=== PATIENT | male | born 2005 | race Caucasian/White ===

== ENCOUNTER 2025-07-21 20:31 | Emergency (ER) | payer BC, SELFPAY ==
[2025-07-21 20:40] VITALS: BP 131/71; PULSE 61; TEMP 36.8; O2SAT 98; BMI 23.7
--- NOTE | 2025-07-21 20:46 | XR_ITS ---
[facility] [place] [id number] Patient Name: RUDI WELCH MRN: [id number] date: 2005 Sex: M Assigned Patient Location: ED.MAIN Current Patient Location: ER Accession/Order Number: [id number] Exam Date: 07/21/2025 20:50 Report Date: 07/21/2025 21:40 At the request of: PHYLLIS MARC MD Procedure: XR knee LT 4V 4 views left knee CLINICAL HISTORY: pain and swelling COMPARISON: None FINDINGS: No evidence acute fracture or dislocation. Minimal medial compartment joint space narrowing. Soft tissues unremarkable. XR/XR knee LT 4V IMPRESSION: Negative acute osseous abnormalities. Impression dictated by: Onofre Simpson M.D. 07/21/2025 9:40 PM Dictation Location: [place] [address] Electronically authenticated by: [id number] Y Date: 07/21/2025 21:40
--- NOTE | 2025-07-21 20:50 | PC.NURSE ---
Swelling and redness to knee
--- NOTE | 2025-07-21 21:08 | PC.NURSE ---
patient complains of left knee pain and swelling onset today, this patient adds 1 day ago that was working on his knees a lot that day this left knee pain is at 7/10 sharp. this patient voices no other concerns, needs and show no signs of distress
--- NOTE | 2025-07-21 21:09 | ED_ITS ---
HPI HPI - Extremity Injury (Lower) General Chief Complaint: Extremity Injury, Lower Stated Complaint: Lower Pain Time Seen by Provider: 07/21/25 21:02 Source: patient Mode of arrival: walk-in History of Present Illness HPI Narrative: patient works on his knees. details cars etc. Noticed discomfort of the knee yesterday. Increased pain during the night and today. Feels somewhat better when wrapped with william bandage. Denies injury , fever or chills Related Data Allergies Allergy/AdvReac Type Severity Reaction Status Date / Time No Known Drug Allergies Allergy Verified 07/21/25 20:46 Opioid HPI Opioid Management Most Recent Pain and Opioid Data: 2 Last Pain Scale 4 Today, 20:40 Review of Systems 2 ROS0 Status of ROS 10 or more systems reviewed and unremark able except as noted in history and below PFSH PFSH Social History Little interest or pleasure in doing things: not at all Feeling down, depressed, or hopeless: not at all Exam Constitutional Vital Signs, click to edit/add: Last Vital Signs Temp 98.3 F 07/21/25 20:40 Pulse 61 07/21/25 20:40 Resp 16 07/21/25 20:40 BP 131/71 07/21/25 20:40 Pulse Ox 98 07/21/25 20:40 Common normals: no apparent distress, average body habitus, oriented x3, no limitations, healthy appearing, alert and well nourished [facility] Common normals: normocephalic and head/scalp atraumatic Eye Common normals: EOMs intact bilaterally and conjunctivae normal Respiratory Common normals: normal respiratory effort, no retractions, no use of accessory muscles and clear to auscultation bilaterally Cardio Common normals: regular rate, regular rhythm, S1 normal heart sound and S2 normal heart sound Extremity Extremity image (front): 2 1. mild swelling, erythema and tenderness left patella Neuro Common normals: oriented x3, CN's II-XII intact bilaterally, moves all extremities and no focal motor deficits Psych Appearance: grossly normal Course Vital Signs Vital signs: Vital Signs Temperature 98.3 F 07/21/25 20:40 Pulse Rate 61 07/21/25 20:40 Respiratory Rate 16 07/21/25 20:40 Blood Pressure 131/71 07/21/25 20:40 Pulse Oximetry 98 07/21/25 20:40 Temperature 98.3 F 07/21/25 20:40 Pulse Rate 61 07/21/25 20:40 Respiratory Rate 16 07/21/25 20:40 Blood Pressure 131/71 07/21/25 20:40 Pulse Oximetry 98 07/21/25 20:40 MDM - Extremity Injury (Lower) MDM Narrative Medical decision making narrative: patient has occupation wherein he is on his knees often. Now presents with what appears to be acute left patella bursititis. xray and labs ordered xray returns without acute findings. WBC and inflammatory markers are normal. Do not suspect septic joint. Patient informed of diagnosis of patella bursitis and to avoid kneeling on his knee. Is t use ice and NSAIDS and follow up with his doctor for recheck Discharge Plan Discharge Chief Complaint: Extremity Injury, Lower Clinical Impression: Patellar bursitis of left knee Patient Disposition: Home, Self-Care Print Language: Peruvian Instructions: Knee Bursitis (ED) Additional Instructions: avoid kneeling on the left knee. Use william bandage for support, ice and motrin or similar. follow up with your doctor later this week or early next week Referrals: Aramis AYALA [Primary Care Provider, Family Practice] - 1 week
[2025-07-21 21:25] LABS: Hematocrit 42.0 % (42.0-54.0); Hemoglobin 14.9 g/dL (14.0-18.0); Immature Granulocytes Abs Auto 0.01 10^3/uL (0.00-0.03); Immature Granulocytes Pct Auto 0.1 % (0.0-0.5); Lymphocytes Absolute Auto 1.5 10^3/uL (1.2-3.8); Mean Corpuscular HGB Conc 35.5 g/dL (29.9-35.2); Mean Corpuscular Hemoglobin 30.7 pg (25.9-34.0); Mean Corpuscular Volume 86.6 fL (80.0-94.0); Platelet Count 155 10^3/uL (150-450); Red Blood Count 4.85 10^6/uL (4.70-6.10); White Blood Count 7.6 10^3/uL (4.0-11.0)
[2025-07-21 21:35] LABS: Anion Gap 11.6; Blood Urea Nitrogen 10.0 mg/dL (7.0-18.0); Calcium 8.6 mg/dL (8.5-10.1); Carbon Dioxide 27.5 mmol/L (21.0-32.0); Chloride 104 mmol/L (98-107); Estimated GFR (African America >60 (>=60 mL/min/1.73m^2); Estimated GFR (Non-African Ame >60 (>=60 mL/min/1.73m^2); Glucose 101 mg/dL (74-106); Potassium 4.1 mmol/L (3.5-5.1); Sodium 139 mmol/L (136-145)
--- NOTE | 2025-07-21 21:46 | PC.NURSE ---
this patient awake and alert sitting upright on the bed looking at his cell phone i informed this patient waiting on all of the test results to come back this patient voices no needs, concerns, and shows no signs of distress
--- NOTE | 2025-07-21 22:23 | PC.NURSE ---
i gave this patient verbal and written discharge orders and this patient voices yes to understanding these. at time of discharge this patient voices no concerns, needs and shows no signs of distress
== END 2025-07-21 22:22 | disposition home or self-care (01) ==
PROVIDERS: Emergency Provider Internal Medicine; PCP Family Medicine
DX: M70.52 Other bursitis of knee, left knee (principal)
CPT/HCPCS: 36415; 73564; 80048; 85025; 85652; 86140; 99284

== ENCOUNTER 2025-10-01 00:02 | Emergency (ER) | payer BC, SELFPAY ==
--- OUTSIDE RECORDS SUMMARY | 2019-09-15 11:16 | XMS_ITS | Continuity of Care Document ---
Author Organization [facility] Address [address] [place] [address] Phone Care Team Providers Care Telemarketer Supervisor Name Role Phone Robson BULL-CPalmer Unavailable Unavailab le Allergies, Adverse Reactions, Alerts Substance Reaction Status Criticality No Known Allergies Active No Inform ation Procedures Procedure Date OFFICE/OUTPATIENT VISIT, EST Imm Admin Through 18 Yrs Of Age 016 HEP A VACC, PED/ADOL, 2 DOSE Imm Admin Through 18 Yrs Of Age 016 HPV 9 Valent IMMUNIZATION ADMIN HEP A VACC, PED/ADOL, 2 DOSE IMMUNIZATION ADMIN, EACH ADD HPV VACCINE NON VALENT IM Imm Admin Through 18 Yrs Of Age 015 H PAPILLOMA VACC 3 DOSE IM Imm Admin Through 16 Yrs Of Age 015 FLU VAC NO PRSV 4 HERMELINDA 3 YRS+ IMMUNIZATION ADMIN H PAPILLOMA VACC 3 DOSE IM IMMUNIZATION ADMIN, EACH ADD FLU VAC NO PRSV 4 HERMELINDA 3 YRS+ Imm Admin Through 16 Yrs Of Age 015 HEP A VACC, PED/ADOL, 2 DOSE Imm Admin Through 16 Yrs Of Age 015 H PAPILLOMA VACC 3 DOSE IM IMMUNIZATION ADMIN, EACH ADD Meningococcal Conjugate Vaccine 015 Imm Admin Through 16 Yrs Of Age 015 TDAP VACCINE >7 IM IMMUNIZATION ADMIN HEP A VACC, PED/ADOL, 2 DOSE IMMUNIZATION ADMIN, EACH ADD H PAPILLOMA VACC 3 DOSE IM MENINGOCOCCAL VACCINE, IM TDAP VACCINE >7 IM Advance Directives Directive Yes / No Effective Date File Name No Information Encounters Encounter Description Practice Location Reason(s) For Visit Diagnoses Date Provider Providers Copied on Encounter [facility], [address] [place] [address], [id number], [place] tel:[phone] [facility] No Information 9 Robson Chakraborty. [address] [place] [address], [id number] , [place]. tel:[phone] OFFICE/OUTPAT IENT VISIT, EST [facility], [address] [place] [address], [id number], [place] tel:[phone] [facility] STI (chief complaint)p roblem visit (chief complaint) Problem related to lifestyleContact w and exposure to infect w a sexl mode of transmissOther problems related to lifestyle 9 Robson Chakraborty. [address] [place] [address], [id number] , [place]. tel:[phone] [facility], [address] [place] [address], [id number], [place] tel:[phone] [facility] No Information 6 Tonyi DO Eller. [address] [place] [address], [id number] , [place]. tel: [phone] [facility], [address] [place] [address], [id number], [place] tel:[phone] [facility] No Information 5 Rosaura Aponte. [address], [place], [id number] , [place]. tel:[phone] [facility], [address], [place], [id number], [place] tel:[phone] [facility] No Information 5 Rosaura Aponte. [address], [place], [id number] , [place]. tel:[phone] Family History Family Member Type Diagnosis Age At Onset No Information Immunizations Vaccine Date Status Comments Hep A (ped/adol, 2 dose) administered Lesia rce: New Immunization Record HPV (9-valent) administered Source: New I mmunization Record Influenza virus vaccine, injectable, quadrivalent, split virus, preservative free, 3 years or older Fluarix, Flulaval or Fluzone Quad administered Source: New Immuniza tion Record HPV administered Source: New Imm unization Record Hep A (ped/adol, 2 dose) administered Lesia rce: New Immunization Record HPV administered Source: New Imm unization Record MCV4 administered Source: New Imm unization Record Tdap administered Source: New Imm unization Record Payers Payer name Insurance type Covered alliance party ID Authoriza tion(s) [place] Adv CFC 190 [id number] Medicaid Wrap - [facility] [id number] [place] [id number] [place] Ad[employer] Medicaid [id number] - Medicaid Wrap - [facility] [id number] [place] [id number] [place] [employer] Medicaid [id number] - Medicaid Wrap - [facility] [id number] [place] [id number] [place] [employer] Medicaid [id number] - Medicaid Wrap - [facility] [id number] [place] [id number] [place] [employer] Medicaid [id number] - Medicaid Wrap - [facility] [id number] Social History Type Description Quantity Date Captured Comments Sex Male Smoking Status No Information Sexual Orientation Straight or heterosexual Gender Identity Male Chief Complaint And Reason For Visit No Information Reason For Referral Reason For Referral No Information History Of Present Illness Encounter Date Complaint History Of Prese nt Illness STI problem visit Pt here today fo r STI testing. Last sexual encounter was 06/16/19 and did not use a condom. Heterosexual male, denies symptoms. Denies need for condoms today. CHANCE ClarkDenies any acute rashes, lesions, discharge, or dysuria. No testicular pain or swelling. Does not feel ill, or illness recently. No history of immunocompromising conditions. 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
--- OUTSIDE RECORDS SUMMARY | 2025-09-24 16:00 | XMS_ITS | Encounter Summary ---
Author Organization [facility] Address [address] [place] [place] [address] Care Team Providers Care Contact Center Manager Name Role Phone Jim Pena Primary Care Provider [phone] Encounter Details DateTypeDepartmentCare Team (Latest Contact Info)Oixozbgaiix87/11/2025 4:00 PM ESTOffice Visit [facility] [address] [place] [id number] Bre Handley NP [address] [facility] [address] [place] [address] Laceration of left thumb without foreign body without damage to nail, initial encounter (Primary Dx) Social History Tobacco UseTypesPacks/DayYears UsedDateSmoking Tobacco: Never AssessedSex and Gender InformationValueDate RecordedSex Assigned at BirthNot on fileLegal Sex Male12/27/2022 7:17 PM EDTGender OgtyyzpgFygq89/15/2023 7:17 PM EDTSexual OrientationNot on filedocumented as of this encounter Last Filed Vital Signs Vital SignReadingTime TakenCommentsBlood Rvwebqqx350/8209/24/2025 4:03 PM EST Wvque968809/24/2025 4:03 PM IICLmbxgwrffta59.6 ??C (97.8 ??F)09/24/2025 4:03 PM ESTRespiratory Rate--Oxygen Cjfotpnbsj27%09/24/2025 4:03 PM ESTInhaled Oxygen Concentration--Vkmezq32.4 kg (175 lb)09/24/2025 4:03 PM ESTHeight--Body Mass Index24.75003/06/2022 12:00 PM EDTdocumented in this encounter Plan of Treatment DateTypeDepartmentCare Team (Latest Contact Info)Pvktpjidmxu27/18/2025 4:00 PM ESTOffice Visit [facility] [place] [facility] [address] [place] [phone] NameTypePriorityAssociated DiagnosesOrder ScheduleWound CareProceduresRoutine Laceration of left thumb without foreign body without damage to nail, initial encounter Ordered: 09/24/2025documented as of this encounter Visit Diagnoses Diagnosis Laceration of left thumb without foreign body without damage to nail, initial encounter- Primary documented in this encounter Care Teams Team MemberRelationshipSpecialtyStart DateEnd Date Jim Pena DO [address] [place] [address] PCP - GeneralFamily Medicine02/20/23documented as of this encounter
--- OUTSIDE RECORDS SUMMARY | 2025-09-26 09:15 | XMS_ITS | Encounter Summary ---
Author Organization [facility] Address [address] [place] [address] Care Team Providers Care Concrete Paver Name Role Phone Jim Pena Primary Care Provider [phone] Encounter Details DateTypeDepartmentCare Team (Latest Contact Info)Uurnngjuggb65/13/2025 9:15 AM ESTOffice Visit [facility] [address] [place] [address] Marissa Colon, ML [address] [place] [address] Laceration of left thumb without foreign body without damage to nail, initial encounter (Primary Dx) Social History Tobacco UseTypesPacks/DayYears UsedDateSmoking Tobacco: Never AssessedSex and Gender InformationValueDate RecordedSex Assigned at BirthNot on fileLegal Sex Male12/27/2022 7:17 PM EDTGender JwqpbkykUoqt66/15/2023 7:17 PM EDTSexual OrientationNot on filedocumented as of this encounter Last Filed Vital Signs Vital SignReadingTime TakenCommentsBlood Joursyyx844/7609/26/2025 9:38 AM EST Fbpts914509/26/2025 9:38 AM XXJQyagfklulig52.5 ??C (97.7 ??F)09/26/2025 9:38 AM ESTRespiratory Rate--Oxygen Skjgzqljll36%09/26/2025 9:38 AM ESTInhaled Oxygen Concentration--Weight--Height--Body Mass Index--documented in this encounter Plan of Treatment DateTypeDepartmentCare Team (Latest Contact Info)Tpzqyzxsoox14/18/2025 4:00 PM ESTOffice Visit [facility] [place] [facility] [address] [place] [phone] documented as of this encounter Visit Diagnoses Diagnosis Laceration of left thumb without foreign body without damage to nail, initial encounter- Primary documented in this encounter Care Teams Team MemberRelationshipSpecialtyStart DateEnd Date Jim Pena DO [address] [place] [address] PCP - GeneralFamily Medicine02/20/23documented as of this encounter
[2025-10-01 00:11] VITALS: BP 144/70; PULSE 59; TEMP 36.6; O2SAT 99; BMI 24.4
--- NOTE | 2025-10-01 00:23 | XR_ITS ---
[facility] [place] [id number] Patient Name: RUDI WELCH MRN: [id number] date: 2005 Sex: M Assigned Patient Location: ER Current Patient Location: ED.MAIN Accession/Order Number: [id number] Exam Date: 10/01/2025 00:35 Report Date: 10/01/2025 09:55 At the request of: TARAS CABRAL MD Procedure: XR finger LT min 2V LEFT THUMB - 3 views COMPARISON: None CLINICAL DATA: Increasing pain and swelling at the thumb since laceration last week AP, lateral and oblique views were obtained. There is no fracture, dislocation or bony destruction. There is mild volar soft tissue swelling. No radiopaque foreign bodies or subcutaneous air are noted. XR/XR finger LT min 2V IMPRESSION: NO ACUTE BONY FINDINGS. Impression dictated by: Bettye Cortez M.D. 10/01/2025 9:55 AM Dictation Location: [place] [address] Electronically authenticated by: [id number] Y Date: 10/01/2025 09:55
--- NOTE | 2025-10-01 00:24 | ED_ITS ---
HPI - Extremity Problem General Chief complaint: Extremity Problem, Nontraumatic Stated complaint: CUT THUMB LAST SUNDAY, NOW NO FEELING SWOLLEN Time Seen by Provider: 10/01/25 00:16 Source: patient Mode of arrival: walk-in History of Present Illness HPI Narrative: This 70-year-old male presents for evaluation of left thumb pain and swelling. The patient sustained a laceration to the palmar surface of the left thumb last . He had a closed with sutures at urgent care. 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 Since then he has pain and swelling of the left thumb from the metacarpal joint to the end of the thumb. There is no redness or swelling. There is no drainage. The sutures appear to be intact. Related Data Home Medications ?Medication ?Instructions ?Recorded ?Confirmed No Known Home Medications 10/01/2509/14 Allergies Allergy/AdvReac Type Severity Reaction Status Date / Time No Known Drug Allergies Allergy Verified 07/21/25 20:46 Review of Systems ROS Status of ROS 10 or more systems reviewed and unremark able except as noted in history and below PFSH PFSH Social History Little interest or pleasure in doing things: not at all Feeling down, depressed, or hopeless: not at all Exam Narrative Exam Narrative: Vital signs and Nursing Notes reviewed: Patient is afebrile with a normal pulse, blood pressure is mildly elevated 144/70, he is not hypoxic with pulse ox of 99% on room air General: Awake, alert, oriented, no acute distress, lying comfortably on the [facility] HEENT: Normocephalic atraumatic, mucous membranes are moist and pink, eyes are clear, normal conjunctiva, vision is grossly intact Chest: Lungs are clear to auscultation with good air entry, there is no wheezing rhonchi or rales appreciated no accessory muscle use, patient is speaking in complete sentences-no chest wall tenderness to palpation CVS: Regular rate and rhythm S1-S2, no murmurs rubs or gallops, pulses are brisk and equal bilaterally Extremities: There are sutures on the palmar surface of the left thumb. There is tenderness from the metacarpal to the distal end of the thumb with mild swelling. Pt states he cannot straighten his index finger- it does appear mildly swollen. Patient is able to approximate thumb and index and long finger but not the ring finger or fifth finger. He is able to resist my movement and has decreased range of motion but able to flex and extend at the distal phalanx. There is no redness overlying the sutures on the thumb or on the thumb, thenar eminence and no lymphangitic streaking. Skin: Normal in appearance without rash,pallor, petechiae or purpura Neuro: No focal deficits Constitutional Vital Signs, click to edit/add: Last Vital Signs Temp 98 F 10/01/25 00:11 Pulse 59 L 10/01/25 00:11 Resp 18 10/01/25 00:11 BP 144/70 H 10/01/25 00:11 Pulse Ox 99 10/01/25 00:11 Course Vital Signs Vital signs: Vital Signs Temperature 98 F 10/01/25 00:11 Pulse Rate 59 L 10/01/25 00:11 Respiratory Rate 18 10/01/25 00:11 Blood Pressure 144/70 H 10/01/25 00:11 Pulse Oximetry 99 10/01/25 00:11 Temperature 98 F 10/01/25 00:11 Pulse Rate 59 L 10/01/25 00:11 Respiratory Rate 18 10/01/25 00:11 Blood Pressure 144/70 H 10/01/25 00:11 Pulse Oximetry 99 10/01/25 00:11 MDM - Extremity (Nontraumatic) MDM Narrative Medical decision making narrative: This 20-year-old male who is right-hand dominant presents for evaluation of left thumb and index finger pain and swelling. The patient had a laceration to the palmar surface of his left thumb on of last week. He was seen at urgent care and this was sutured. Today he was Power washing his car and using his left hand and thumb and later on in the evening developed pain and swelling in the thumb. He states he cannot straighten out his thumb or his index finger. He does have some swelling of the extremity with mild decreased range of motion. There is no severe tenderness to the area. It is not red. Capillary refill at the distal end of the finger was normal. He was able to oppose his thumb and index and long finger but not the 4th and 5th finger of the left hand. My concern was that he may be developing a flexor tenosynovitis however clinically it did not appear to be infected but due to the recent laceration and laceration repair and now swelling after using it he was treated for a potential soft tissue infection with IV vancomycin and IV Unasyn. Routine labs and x-ray of the left hand was ordered. The x-ray does not show any acute findings, there is no fracture, foreign body or gas in the thumb. He has a normal white count and stable hemoglobin. CRP, sed rate and lactic acid are all normal. This was discussed with Dr. Gage, orthopedics on-call. He suggested the patient be discharged home with antibiotics and limited use of the extremity and he will be seen in the orthopedics office in follow-up. This was relayed to the patient who is in agreement with this plan. He was given a note for work today and was discharged home with a prescription for ibuprofen and Augmentin. After his treatment emergency department his symptoms did improve and he had increased range of motion of the thumb and index finger. He was instructed to return to the emergency department for increasing redness, swelling, fever, lymphangitic streaking or any concerns. Lab Data Labs: Lab Results 10/01/25 Range/Units 00:48 WBC 8.6 (4.0-11.0) 10^3/uL RBC 4.92 (4.70-6.10) 10^6/uL Hgb 15.2 (14.0-18.0) g/dL Hct 42.4 (42.0-54.0) % MCV 86.2 (80.0-94.0) fL MCH 30.9 (25.9-34.0) pg MCHC 35.8 H (29.9-35.2) g/dL RDW 12.5 (11.0-15.0) % Plt Count 183 (150-450) 10^3/uL MPV 9.7 (9.5-13.5) fL Neut % (Auto) 75.5 H (43.0-75.0) % Lymph % (Auto) 16.8 L (20.5-60.0) % Upton % (Auto) 6.6 (1.7-12.0) % Eos % (Auto) 0.7 L (0.9-7.0) % Baso % (Auto) 0.3 (0.2-2.0) % Neut # (Auto) 6.5 (1.4-6.5) 10^3/uL Lymph # (Auto) 1.4 (1.2-3.8) 10^3/uL Upton # (Auto) 0.6 (0.3-0.8) 10^3/uL Eos # (Auto) 0.1 (0.0-0.7) 10^3/uL Baso # (Auto) 0.0 (0.0-0.1) 10^3/uL Abs Immat Gran (auto) 0.01 (0.00-0.03) 10^3/uL Imm/Tot Granulo (auto) 0.1 (0.0-0.5) % ESR 3 (<=15) mm/hr Lactate 0.9 (0.4-2.0) mmol/L C-Reactive Protein <0.50 (<=0.50) mg/dL Discharge Plan Discharge Chief Complaint: Extremity Problem, Nontraumatic Clinical Impression: Pain of left thumb, Tendonitis of finger Patient Disposition: Home, Self-Care Time of Disposition Decision: 03:45 Condition: Good Prescriptions / Home Meds: No Action No Known Home Medications Print Language: Divehi Instructions: Tendinitis (ED) Additional Instructions: Limit use of your left hand, allow it to rest, use antibiotics as directed. Use ibuprofen and Tylenol as needed. Return to the emergency department for redness, increased swelling, fevers, chills or any concerns. Please follow-up closely with outpatient orthopedics. Referrals: Aramis AYALA [Primary Care Provider, Family Practice] - 1 week Mike Gage DO [Physician, Orthopedics] - As soon as possible Discharge Date/Time: 10/01/25 03:53
[2025-10-01] MEDS: IBUPROFEN 600 MG TABLET PO (00:41)
[2025-10-01 00:54] LABS: Hematocrit 42.4 % (42.0-54.0); Hemoglobin 15.2 g/dL (14.0-18.0); Immature Granulocytes Abs Auto 0.01 10^3/uL (0.00-0.03); Immature Granulocytes Pct Auto 0.1 % (0.0-0.5); Lymphocytes Absolute Auto 1.4 10^3/uL (1.2-3.8); Mean Corpuscular HGB Conc 35.8 g/dL (29.9-35.2); Mean Corpuscular Hemoglobin 30.9 pg (25.9-34.0); Mean Corpuscular Volume 86.2 fL (80.0-94.0); Platelet Count 183 10^3/uL (150-450); Red Blood Count 4.92 10^6/uL (4.70-6.10); White Blood Count 8.6 10^3/uL (4.0-11.0)
--- OUTSIDE RECORDS SUMMARY | 2025-10-01 00:54 | XMS_ITS | Clinical Summary ---
Author Organization [facility] Address [address] [place] [address] Care Team Providers Care Butcher Meat Name Role Phone Jim Pena Primary Care Provider [phone] Allergies No known active allergies Medications No known medications Encounters DateTypeDepartmentCare LtwhEnylscwdjrp74/13/2025 9:15 AM ESTOffice Visit [facility] [address] [facility] [address] [place] [phone] Marissa Colon, PHYSICAL CHEMISTRY TEACHER Laceration of left thumb without foreign body without damage to nail, initial encounter (Primary Dx)09/26/20255237Ihyzav04/11/2025 4:00 PM ESTOffice Visit [facility] [address] [facility] [address] [place] [phone] Bre Handley, PHYSICAL CHEMISTRY TEACHER Laceration of left thumb without foreign body without damage to nail, initial encounter (Primary Dx)09/24/2025Travelfrom Last 3 Months Social History Tobacco UseTypesPacks/DayYears UsedDateSmoking Tobacco: Never AssessedSex and Gender InformationValueDate RecordedSex Assigned at BirthNot on fileLegal Sex Male12/27/2022 7:17 PM EDTGender QjkqbxrbQnfx43/15/2023 7:17 PM EDTSexual OrientationNot on file Last Filed Vital Signs Vital SignReadingTime TakenCommentsBlood Ronbdegs604/7609/26/2025 9:38 AM EST Dznfo140609/26/2025 9:38 AM ZQDIjnqadyxiot04.5 ??C (97.7 ??F)09/26/2025 9:38 AM ESTRespiratory Rate--Oxygen Udcitxixcv19%09/26/2025 9:38 AM ESTInhaled Oxygen Concentration--Xeifss28.4 kg (175 lb)09/24/2025 4:03 PM POIEaeusb026.1 cm (5' 10.5 )03/06/2022 12:00 PM EDTBody Mass Index24.75003/06/2022 12:00 PM EDT Plan of Treatment DateTypeDepartmentCare Team (Latest Contact Info)Nmwcondfofr22/18/2025 4:00 PM ESTOffice Visit [facility] [place] [address] [place] [address] Health MaintenanceDue DateLast DoneCommentsCOVID-19 Vaccine (2024- season) 2025Influenza Vaccine (#1)2025Pneumococcal Vaccine: Pediatrics (0 to 5 Years) and At-Risk Patients (6 to 64 Years)Aged OutNo longer eligible based on patient's age to complete this topic Insurance Care Teams Team MemberRelationshipSpecialtyStart DateEnd Date Jim Pena, [address] [place], [place] [id number] [facility]02/20/23
--- OUTSIDE RECORDS SUMMARY | 2025-10-01 00:54 | XMS_ITS | Encounter Summary ---
Author Organization [facility] Address [address] [place] [address] Care Team Providers Care Pedodontist Name Role Phone Jim Pena DO Primary Care Provider [phone] Encounter Details DateTypeDepartmentCare Team (Latest Contact Info)Zzchrldtcnk57/11/2025Travel Social History Tobacco UseTypesPacks/DayYears UsedDateSmoking Tobacco: Never AssessedSex and Gender InformationValueDate RecordedSex Assigned at BirthNot on fileLegal Sex Male12/27/2022 7:17 PM EDTGender TrcwiktpNycr83/15/2023 7:17 PM EDTSexual OrientationNot on filedocumented as of this encounter Plan of Treatment DateTypeDepartmentCare Team (Latest Contact Info)Rqssxijdeuv93/18/2025 4:00 PM ESTOffice Visit [facility] [address] [place] [address] documented as of this encounter Visit Diagnoses Not on filedocumented in this encounter Care Teams Team MemberRelationshipSpecialtyStart DateEnd Date Jim Pena DO [address] [place] [address] PCP - GeneralFamily Medicine02/20/23documented as of this encounter
--- OUTSIDE RECORDS SUMMARY | 2025-10-01 00:54 | XMS_ITS | Clinical Summary ---
Author Organization [facility] tem Address [id number] [place] [address] Care Team Providers Care Under Cutting Machine Operator Name Role Phone Becky Queen DO, George R Primary Care Provider + Allergies No known active allergies Medications No known medications Active Problems No known active problems Family History Medical HistoryRelationNameCommentsAsthmaBrother 2JakeDiabetesFatherRichard ArrhythmiaMaternal GrandfatherafibHypertensionMaternal GrandfatherHigh CholesterolMaternal GrandmotherHypertensionMaternal GrandmotherAsthmaMother KristenHypertensionMotherKristenClotting disorderNeg HxHeart attackNeg HxHeart defectNeg HxSeizuresNeg HxStrokeNeg HxSudden deathNeg HxThyroid IssuesNeg Hx RelationNameStatusCommentsBrother 1NicholasAliveBrother 2JakeAliveFatherRichard AliveMaternal GrandfatherMaternal GrandmotherMotherKristenAliveSisterGabbyAlive Social History Tobacco UseTypesPacks/DayYears UsedDateSmoking Tobacco: NeverSmokeless Tobacco: NeverAlcohol UseStandard Drinks/WeekCommentsYes0 (1 standard drink = 0.6 oz pure alcohol)2-3 times per monthAUDIT-CAnswerDate RecordedQ1: How often do you have a drink containing alcohol?Never04/08/2020Average Number of DrinksNot on file 04/08/2020Frequency of Binge DrinkingNot on file04/08/2020PHQ-2AnswerDate RecordedTotal Skkza201ChildcareAnswerDate RecordedChildcareUnknown 03/27/2019EmploymentAnswerDate ZvthcmmzHvwukvrivxWfoaazw88/13/2019Purpose - Life AnswerDate RecordedPurpose and direction in xugnIpolxci66/11/2021ex and Gender InformationValueDate RecordedSex Assigned at BirthNot on fileLegal SexMale 02/19/2018 4:35 PM EDTGender IdentityNot on fileSexual OrientationNot on file Last Filed Vital Signs Vital SignReadingTime TakenCommentsBlood Wneraaxm525/78004/08/2020 11:32 AM EDT Bqimc1057/25/2020 11:32 AM EDTTemperature--Respiratory Rate--Oxygen Saturation-- Inhaled Oxygen Concentration--Jsbuoz43.9 kg (171 lb 11.8 oz)04/08/2020 11:30 AM ASVMtftiy610.8 cm (5' 9.21 )04/08/2020 11:30 AM EDTBody Mass Index25.21 04/08/2020 11:30 AM EDT Plan of Treatment Health MaintenanceDue DateLast DoneCommentsDepression Xhkzyaxba48/29/2015Tobacco Vfrjlnygd65/29/2015dult BMI Gzvibzaco61/29/2021TaP,Tdap and Td Vaccines (1 - Tdap)2022Influenza Exaxjrp6606/15/2025 Medical Devices Not on file Insurance Care Teams Team MemberRelationshipSpecialtyStart DateEnd Date Jim Pena Jr., [address] [place] [address], [id number] [place] [address] [facility]20
--- OUTSIDE RECORDS SUMMARY | 2025-10-01 00:54 | XMS_ITS | Encounter Summary ---
Author Organization [facility] Address [address] [place] [address] Care Team Providers Care Forming Press Operator Name Role Phone Jim Pena DO Primary Care Provider [phone] Encounter Details DateTypeDepartmentCare Team (Latest Contact Info)Qvbayjthwqa61/13/2025Travel Social History Tobacco UseTypesPacks/DayYears UsedDateSmoking Tobacco: Never AssessedSex and Gender InformationValueDate RecordedSex Assigned at BirthNot on fileLegal Sex Male12/27/2022 7:17 PM EDTGender BehiaoruZaht61/15/2023 7:17 PM EDTSexual OrientationNot on filedocumented as of this encounter Plan of Treatment DateTypeDepartmentCare Team (Latest Contact Info)Cgthinbpfwk80/18/2025 4:00 PM ESTOffice Visit [facility] [address] [place] [address] documented as of this encounter Visit Diagnoses Not on filedocumented in this encounter Care Teams Team MemberRelationshipSpecialtyStart DateEnd Date Jim Pena DO [address] [place] [address] PCP - GeneralFamily Medicine02/20/23documented as of this encounter
[2025-10-01] MEDS: VANCOMYCIN HCL 1,250 MG in 0.9 % SODIUM CHLORIDE 500 ML 250 MG IV (01:08)
[2025-10-01 01:12] LABS: Lactate/Lactic Acid 0.9 mmol/L (0.4-2.0)
[2025-10-01] MEDS: AMPICILLIN SODIUM/SULBACTAM NA 3 GM in 0.9 % SODIUM CHLORIDE 100 ML IV (03:13)
== END 2025-10-01 03:53 | disposition home or self-care (01) ==
PROVIDERS: Emergency Provider Emergency Medicine; PCP Family Medicine
DX: M79.645 Pain in left finger(s) (principal); M77.8 Other enthesopathies, not elsewhere classified; S61.012D Laceration without foreign body of left thumb without damage to nail, subsequent encounter; X58.XXXD Exposure to other specified factors, subsequent encounter
CPT/HCPCS: 36415; 73140; 83605; 85025; 85652; 86140; 96365; 96366; 96367; 99284; J0295; J3373